=== PATIENT | female | born 1955 ===

== ENCOUNTER 2018-08-05 20:06 | Inpatient (IN) ==
[2018-08-06] MEDS ORDERED: DOCUSATE SODIUM 100 MG CAPSULE PO PRN (01:07)
[2018-08-06] MEDS ORDERED: ACETAMINOPHEN 325 MG TABLET PO PRN (01:07)
[2018-08-06] MEDS ORDERED: NICOTINE 21 MG/24 HR PATCH TRANSDERM PRN (01:07)
[2018-08-06] MEDS ORDERED: ONDANSETRON 4 MG/2 ML VIAL IV PRN (01:07)
[2018-08-06] MEDS ORDERED: DEXTROSE 50% 25 GM/50 ML SYRINGE IV PRN (01:07)
[2018-08-06] MEDS ORDERED: GLUCAGON 1 MG VIAL IM PRN (01:07)
[2018-08-06] MEDS ORDERED: diphenhydrAMINE CAP 25 MG CAPSULE PO PRN (01:07)
[2018-08-06 05:11] LABS: Basophils % 0.3 % (0.0-0.8); Eosinophils # 0.1 10*3/uL (0.0-0.87); Eosinophils % 4.8 % (0.00-10.9); Hematocrit 28.7 VOL% (35.7-47.0); Hemoglobin 8.6 GM/DL (12.0-16.0); Immature Granulocytes % 0.7 %; Immature Granulocytes Absolute 0.02 #; Lymphocytes # 0.5 10*3/uL (1.4-4.0); Lymphocytes % 17.1 % (21.3-54.2); Mean Corpuscular Hemoglobin 31 PG (27-34); Mean Corpuscular Volume 101.8 FL (87-102); Mean Platelet Volume 10.7 FL (9.6-12.0); Monocytes # 0.3 10*3/uL (0.11-0.8); Monocytes % 11.3 % (1.7-12.7); Neutrophils # 1.9 10*3/uL (1.4-7.4); Neutrophils % 65.8 % (38.7-73.9); Platelet Count 147 T/CUMM (130-400); Red Blood Count 2.82 MC/CUMM (3.8-5.5); Red Cell Distribution Width 14.6 % (9.3-17.3); White Blood Count 2.9 T/CUMM (4-12)
[2018-08-06 05:31] LABS: Albumin 1.9 G/DL (3.4-5.0); Bilirubin,Total 0.6 MG/DL (0.2-1.0); Osmolality,Calculated 287.7 MOS/KG (273-304); Potassium 3.3 MMOL/L (3.5-5.1); Total Protein 5.8 G/DL (6.4-8.3)
[2018-08-06] MEDS: HEPARIN DRIP 25,000 UNITS/500 ML PREMIX IV SCH (06:09)
[2018-08-06] MEDS: INSULIN REGULAR 100 UNIT/ML SUBCUT SCH ×4 (07:50→21:27)
[2018-08-06] MEDS: MORPHINE 4 MG/1 ML VIAL IV PRN ×2 (10:04→16:02)
[2018-08-06] MEDS: POTASSIUM CHLORIDE 20 MEQ TABLET PO PRN ×2 (17:48→21:26)
[2018-08-06] MEDS: PANTOPRAZOLE 40 MG TABLET PO SCH (17:48)
[2018-08-06] MEDS: SIMVASTATIN 20 MG TABLET PO SCH (21:26)
[2018-08-06] MEDS: METOPROLOL SUCCINATE XL 100 MG TABLET PO SCH (21:26)
[2018-08-06] MEDS: sitaGLIPtin 100 MG TABLET PO SCH (21:28)
[2018-08-07] MEDS: HEPARIN DRIP 25,000 UNITS/500 ML PREMIX IV SCH (05:51)
[2018-08-07] MEDS: LEVOTHYROXINE 112 MCG TABLET PO SCH (05:54)
[2018-08-07 07:27] LABS: Albumin 1.9 G/DL (3.4-5.0); Bilirubin,Total 0.4 MG/DL (0.2-1.0); Calcium 7.7 MG/DL (8.5-10.1); Osmolality,Calculated 286.7 MOS/KG (273-304); Potassium 4.1 MMOL/L (3.5-5.1); Total Protein 5.4 G/DL (6.4-8.3)
[2018-08-07 07:56] LABS: Basophils % 0.8 % (0.0-0.8); Eosinophils # 0.2 10*3/uL (0.0-0.87); Hemoglobin 8.8 GM/DL (12.0-16.0); Immature Granulocytes % 0.8 %; Immature Granulocytes Absolute 0.02 #; Lymphocytes # 0.5 10*3/uL (1.4-4.0); Lymphocytes % 18.4 % (21.3-54.2); Mean Corpuscular HGB Conc 30.3 GM/DL (32-36); Mean Corpuscular Hemoglobin 31 PG (27-34); Mean Platelet Volume 10.3 FL (9.6-12.0); Monocytes # 0.3 10*3/uL (0.11-0.8); Monocytes % 11.2 % (1.7-12.7); Neutrophils # 1.6 10*3/uL (1.4-7.4); Neutrophils % 62.8 % (38.7-73.9); Platelet Count 141 T/CUMM (130-400); Red Blood Count 2.87 MC/CUMM (3.8-5.5); Red Cell Distribution Width 14.4 % (9.3-17.3); White Blood Count 2.5 T/CUMM (4-12)
[2018-08-07 08:17] LABS: Albumin 1.8 G/DL (3.4-5.0); Bilirubin,Total 0.4 MG/DL (0.2-1.0); Calcium 7.8 MG/DL (8.5-10.1); Osmolality,Calculated 283.8 MOS/KG (273-304); Total Protein 5.9 G/DL (6.4-8.3)
[2018-08-07] MEDS: INSULIN REGULAR 100 UNIT/ML SUBCUT SCH ×4 (08:20→21:55)
[2018-08-07] MEDS: PANTOPRAZOLE 40 MG TABLET PO SCH (09:20)
[2018-08-07] MEDS: CHLORTHALIDONE 25 MG TABLET PO SCH (09:20)
[2018-08-07] MEDS: MORPHINE 4 MG/1 ML VIAL IV PRN (12:00)
[2018-08-07] MEDS: SIMVASTATIN 20 MG TABLET PO SCH (21:56)
[2018-08-07] MEDS: sitaGLIPtin 100 MG TABLET PO SCH (21:56)
[2018-08-07] MEDS: METOPROLOL SUCCINATE XL 100 MG TABLET PO SCH (21:56)
[2018-08-08] MEDS: LEVOTHYROXINE 112 MCG TABLET PO SCH (06:16)
[2018-08-08 06:24] LABS: Basophils % 0.5 % (0.0-0.8); Eosinophils # 0.1 10*3/uL (0.0-0.87); Eosinophils % 2.9 % (0.00-10.9); Hematocrit 27.3 VOL% (35.7-47.0); Hemoglobin 8.4 GM/DL (12.0-16.0); Immature Granulocytes % 0.5 %; Immature Granulocytes Absolute 0.02 #; Lymphocytes # 0.6 10*3/uL (1.4-4.0); Lymphocytes % 13.2 % (21.3-54.2); Mean Corpuscular HGB Conc 30.8 GM/DL (32-36); Mean Corpuscular Hemoglobin 31 PG (27-34); Mean Corpuscular Volume 101.1 FL (87-102); Mean Platelet Volume 10.9 FL (9.6-12.0); Monocytes # 0.5 10*3/uL (0.11-0.8); Monocytes % 12.2 % (1.7-12.7); Neutrophils # 3.1 10*3/uL (1.4-7.4); Neutrophils % 70.7 % (38.7-73.9); Platelet Count 142 T/CUMM (130-400); Red Cell Distribution Width 14.6 % (9.3-17.3); White Blood Count 4.4 T/CUMM (4-12)
[2018-08-08 06:42] LABS: Albumin 1.8 G/DL (3.4-5.0); Bilirubin,Total 0.6 MG/DL (0.2-1.0); Calcium 7.8 MG/DL (8.5-10.1); Osmolality,Calculated 280.1 MOS/KG (273-304); Potassium 3.8 MMOL/L (3.5-5.1); Total Protein 5.6 G/DL (6.4-8.3)
[2018-08-08] MEDS ORDERED: MAGNESIUM SULF RIDER 4 GM in PREMIX 1 EACH IV PRN (07:36)
[2018-08-08] MEDS: INSULIN REGULAR 100 UNIT/ML SUBCUT SCH ×4 (09:26→21:44)
[2018-08-08] MEDS: PANTOPRAZOLE 40 MG TABLET PO SCH (09:44)
[2018-08-08] MEDS: CHLORTHALIDONE 25 MG TABLET PO SCH (09:45)
[2018-08-08] MEDS ORDERED: RIVAROXABAN 15 MG TABLET PO ONE (12:00)
[2018-08-08] MEDS: HEPARIN DRIP 25,000 UNITS/500 ML PREMIX IV SCH (13:16)
[2018-08-08] MEDS: DEXTROSE 5% 1,000 ML IV SCH (13:17)
[2018-08-08] MEDS: MAGNESIUM SULF RIDER 2 GM in PREMIX 1 EACH IV PRN ×2 (13:17→16:39)
[2018-08-08] MEDS: RIVAROXABAN 15 MG TABLET PO SCH (16:39)
[2018-08-08] MEDS: SIMVASTATIN 20 MG TABLET PO SCH (21:43)
[2018-08-08] MEDS: METOPROLOL SUCCINATE XL 100 MG TABLET PO SCH (21:43)
[2018-08-08] MEDS: POTASSIUM CHLORIDE 20 MEQ TABLET PO PRN (21:43)
[2018-08-09 04:45] LABS: Basophils % 0.5 % (0.0-0.8); Eosinophils # 0.3 10*3/uL (0.0-0.87); Eosinophils % 5.9 % (0.00-10.9); Hematocrit 29.3 VOL% (35.7-47.0); Hemoglobin 8.9 GM/DL (12.0-16.0); Immature Granulocytes % 0.5 %; Immature Granulocytes Absolute 0.02 #; Lymphocytes # 0.6 10*3/uL (1.4-4.0); Lymphocytes % 13.8 % (21.3-54.2); Mean Corpuscular HGB Conc 30.4 GM/DL (32-36); Mean Corpuscular Hemoglobin 31 PG (27-34); Mean Platelet Volume 10.9 FL (9.6-12.0); Monocytes # 0.5 10*3/uL (0.11-0.8); Monocytes % 10.8 % (1.7-12.7); Neutrophils # 2.9 10*3/uL (1.4-7.4); Neutrophils % 68.5 % (38.7-73.9); Platelet Count 160 T/CUMM (130-400); Red Cell Distribution Width 14.7 % (9.3-17.3); White Blood Count 4.3 T/CUMM (4-12)
[2018-08-09 05:12] LABS: Albumin 1.8 G/DL (3.4-5.0); Bilirubin,Total 0.4 MG/DL (0.2-1.0); Calcium 7.9 MG/DL (8.5-10.1); Osmolality,Calculated 277.4 MOS/KG (273-304); Total Protein 5.8 G/DL (6.4-8.3)
[2018-08-09] MEDS: LEVOTHYROXINE 112 MCG TABLET PO SCH (06:11)
[2018-08-09] MEDS: PANTOPRAZOLE 40 MG TABLET PO SCH (08:36)
[2018-08-09] MEDS: INSULIN REGULAR 100 UNIT/ML SUBCUT SCH ×2 (08:36→12:01)
[2018-08-09] MEDS: CHLORTHALIDONE 25 MG TABLET PO SCH (08:36)
[2018-08-09] MEDS: RIVAROXABAN 15 MG TABLET PO SCH (08:36)
[2018-08-09] MEDS: DEXTROSE 5% 1,000 ML IV SCH (08:37)
[2018-08-09 12:07] VITALS: BP 134/63
== END 2018-08-09 14:59 | disposition home or self-care (01) | DRG 300 ==
LOC: N.ED 20:06 → N.EDINP 08-06 00:46 → N.4E 08-06 01:14
PROVIDERS: ADMIT Internal Medicine; ATTEND Internal Medicine